=== PATIENT | female | born 1955 | race Caucasian/White ===

== ENCOUNTER → 2025-10-19 00:19 | Outpatient (CLI) | payer OTHER, SELFPAY ==
--- NOTE | 2025-10-19 07:45 | DI.RAD_ITS ---
Exam(s) XR FOOT LT COMPLETE EXAM: XR FOOT LT COMPLETE CLINICAL HISTORY: Left foot pain, M79.672. TECHNIQUE: 2D digital imaging was performed. Three views. COMPARISON: CR XR FOOT RT COMPLETE from 10/19/2025 FINDINGS: BONES: No acute fracture is present. No bony destructive lesion is seen. There are small heel spurs. JOINTS: No dislocation present. There are minimal degenerative changes at the 1st MTP joint. The plantar arch is maintained. SOFT TISSUE: Normal. 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 DATA REPOSITORY: RADIATION DOSE DELIVERED:
--- NOTE | 2025-10-19 07:45 | DI.RAD_ITS ---
Exam(s) XR FOOT RT COMPLETE EXAM: XR FOOT RT COMPLETE CLINICAL HISTORY: Right foot pain, M79.671. TECHNIQUE: 2D digital imaging was performed. Three views. COMPARISON: No exams were available for comparison FINDINGS: BONES: No acute fracture is present. No bony destructive lesion is seen.There is a minimal enthesophyte at the Achilles insertion. JOINTS: No dislocation present. There are mild degenerative changes of 1st MTP joint, mild joint space narrowing and mild periarticular spurring. There is slight hallux valgus. There are minimal degenerative changes at the talonavicular joint. Plantar arch is maintained. SOFT TISSUE: Normal. IMPRESSION: Mild degenerative changes 1st MTP joint and talonavicular joint. DATA REPOSITORY: RADIATION DOSE DELIVERED:
== END ==
PROVIDERS: PCP Physician Assistant; Visit Provider Podiatrist
DX: M79.671 Pain in right foot (principal); M79.672 Pain in left foot; M19.071 Primary osteoarthritis, right ankle and foot
CPT/HCPCS: 73630